=== PATIENT | male | born 1995 | race Caucasian/White ===

== ENCOUNTER 2018-01-18 16:53 | Emergency (ER) | payer OTHER ==
[2018-01-18] MEDS ORDERED: NS(*) 0.9% 1000 ML BAG 1,000 ML IV ONE (17:15)
[2018-01-18] MEDS ORDERED: KETOROLAC 30 MG/ML VIAL IVP ONE (17:15)
[2018-01-18] MEDS ORDERED: ONDANSETRON 4 MG/2 ML VIAL IVP ONE (17:15)
--- NOTE | 2018-01-18 17:24 | ER Report ---
History and Physical Time Seen By MD: 17:00 Hx. of Stated Complaint: HIT IN HEAD BY ANOTHERS SHOULDER WHILE PLAYING [employer]CROS[employer]. HPI/ROS This is an otherwise healthy 22-year-old male who was playing Lacrosse earlier today. He got hit in the head by another player's shoulder. The patient states that he fell onto the ground hit his head and even tumbled sideways. He did continue to play the rest again. Now presents to the emergency department with a headache, nausea, and some mild C-spine tenderness. He denies any weakness or numbness, and denies any focal neuro deficits. He denies any other injuries. Allergies: Coded Allergies: amoxicillin (Verified Allergy, Unknown, 01/18/18) ibuprofen (Verified Allergy, Unknown, 01/18/18) Home Meds No Active Prescriptions or Reported Meds Reviewed Nurses Notes: Yes Old Medical Records Reviewed: Yes Hx Smoking: No Smoking Status: Never Smoker Exposure to Second Hand Smoke?: No Hx Substance Use Disorder: No Hx Alcohol Use: No Constitutional Vital Sign - Last 24 Hours 01/18/18 16:59 Temp 99.3 Pulse 99 Resp 16 B/P (MAP) 131/82 Pulse Ox 95 O2 Delivery Room Air Physical Exam General Appearance: The patient is alert, has no immediate need for airway protection and no current signs of toxicity. Eyes: Pupils equal and round no injection. Respiratory: Chest is non tender, lungs are clear to auscultation. Cardiac: regular rate and rhythm Gastrointestinal: Abdomen is soft and non tender, no masses, bowel sounds normal. Musculoskeletal: No TTP Neck: Neck is supple with mild TTP at C7 Extremities have full range of motion and are non tender. Skin: No rashes or lesions. DIFFERENTIAL DIAGNOSIS: After history and physical exam differential diagnosis was considered for head injury including but not limited to concussion, skull fracture, intraparenchymal contusion, subarachnoid, subdural and epidural hematoma. Medical Decision Making ED Course/Re-evaluation ED Course 22-year-old male was wearing his helmet Playing Lacrosse was struck in the side of the helmet by another player's shoulder greater today. He was able to play the remainder of the game but then later presented to the emergency department with a headache feeling lightheaded and nauseous. He had a normal neurologic exam. A CT scan of the head and C-spine were both within normal limits. His symptoms improved with 1 L normal saline, Zofran, and Toradol. I am going to diagnose him with a concussion. I am going to give him concussion precautions and he is going to follow up with his primary care doctor as to when this was appropriate time to go back to contact sports. Decision to Disposition Date: Jan 18, 2018 Decision to Disposition Time: 18:14 Depart Departure Latest Vital Signs Vital Signs Date Time Temp Pulse Resp B/P (MAP) Pulse Ox O2 Delivery O2 Flow Rate FiO2 01/18/18 16:59 99.3 99 16 131/82 95 Room Air Impression: Primary Impression: Concussion Condition: Improved Disposition: HOME OR SELF-CARE New Scripts No Active Prescriptions or Reported Meds Patient Instructions: Concussion (ED) Problem Qualifiers Primary Impression: Concussion Encounter type: initial encounter Loss of consciousness presence/duration: without LOC Qualified Codes: S06.0X0A - Concussion without loss of consciousness, initial encounter BRANDON GREEN MD Jan 18, 2018 17:24
[2018-01-18] MEDS ORDERED: DIPHTH/TETANUS/ACEL. PERTUSSIS IM ONLY ONE (17:55)
--- NOTE | 2018-01-18 18:05 | RADIOLOGY IMAGING REPORT ---
FACILITY: [facility] PATIENT NAME: Baudilio Obrien : 1995 MR: [id number] V: [id number] EXAM DATE: [id number] ORDERING PHYSICIAN: BRANDON GREEN TECHNOLOGIST: Location: [facility] Patient: Baudilio Obrien : 1995 Visit/Account:[id number] Date of Sevice: 01/18/2018 EXAMINATION: Head CT without intravenous contrast HISTORY: Head injury. COMPARISON: None. TECHNIQUE: Contiguous axial images were obtained from the skull base to the vertex without intraven ous contrast. Sagittal and coronal reformatted images are also submitted. One of the following dose optimization techniques was utilized in the performance of this exam: Autom ated exposure control; adjustment of the mA and/or kV according to the patient's size; or use of an i terative reconstruction technique. Specific details can be referenced in the facility's radiology C T exam operational policy. FINDINGS: Brain and intracranial structures: Ventricles, sulci, and cisterns are normal in size. Almodovar-white ma tter differentiation is maintained. No midline shift, acute hemorrhage, acute infarct, or mass. Calvarium / scalp: Negative. Skull base / visualized face: Rightward deviation of the nasal septum. Visualized sinuses / orbits: Small mucous retention cyst in the right sphenoid sinus. IMPRESSION: No acute intracranial abnormality. Report Dictated By: Chris Sampson MD at 01/18/2018 5:54 PM Report E-Signed By: Chris Sampson MD at 01/18/2018 6:00 PM [id number]
--- NOTE | 2018-01-18 18:11 | RADIOLOGY IMAGING REPORT ---
FACILITY: [facility] PATIENT NAME: Baudilio Obrien : 1995 MR: [id number] V: [id number] EXAM DATE: ORDERING PHYSICIAN: BRANDON GREEN TECHNOLOGIST: Location: [facility] Patient: Baudilio Obrien : 1995 Visit/Account:[id number] Date of Sevice: 01/18/2018 EXAMINATION: CT Cervical spine without intravenous contrast HISTORY: Head injury. COMPARISON: None. TECHNIQUE: Axial images were obtained from the skull base through the upper thoracic spine without I V contrast administration. Coronal and sagittal reformatted images were obtained from the axial [facility] e data. One of the following dose optimization techniques was utilized in the performance of this exam: Autom ated exposure control; adjustment of the mA and/or kV according to the patient's size; or use of an i terative reconstruction technique. Specific details can be referenced in the facility's radiology C T exam operational policy. FINDINGS: Alignment: Straightening of the cervical spine. Cranio-cervical junction: Negative. Vertebral bodies: No acute fracture. Posterior elements: No acute fracture. Hardware: None. Disc Spaces: Negative. Soft tissues: Negative. Visualized upper chest: Negative. IMPRESSION: No acute fracture of the cervical spine. Report Dictated By: Chris Sampson MD at 01/18/2018 6:01 PM Report E-Signed By: Chris Sampson MD at 01/18/2018 6:07 PM [id number]
[2018-01-18 18:16] VITALS: BP 124/79
== END 2018-01-18 18:28 | disposition home or self-care (01) ==
LOC: ER 16:57
DX: S06.0X0A Concussion without loss of consciousness, initial encounter (principal); W03.XXXA Other fall on same level due to collision with another person, initial encounter; Y93.65 Activity, lacrosse and field hockey
CPT/HCPCS: 70450; 72125; 90471; 90715; 96361; 96374; 96375; 99284; J1885; J2405; J7030; L0172